=== PATIENT | male | born 1995 | race Caucasian/White ===

== ENCOUNTER 2019-06-05 23:31 | Emergency (ER) | payer SELFPAY ==
[~2019-06-05] VITALS: Ht 185.4 cm; Wt 117.9 kg
--- NOTE | 2019-06-06 00:30 | ED Integumentary General ---
General Chief Complaint: Skin/Wound Problems Stated Complaint: POSS BUG BITES ON BUTT & LEFT ARM,VOMITING,POSS HE Source: patient, family Exam Limitations: no limitations (DANYELL DURON) History of Present Illness Date Seen by Provider: Jun 06, 2019 Time Seen by Provider: 00:13 Initial Comments Pt presents with a bite on his left upper arm that is mildly itchy and a bite on his right upper gluteal region that is associated with a shooting pain down his leg to his knee and up his back a little. He states he stayed at friends house last night and slept on their couch and noticed the bites in the morning. He states that at work this afternoon he had a hot flash with shortness of breath, sweating, and dizziness that caused him to leave work, but have since subsided. Timing/Duration: this morning Severity: mild Location: torso (Right upper buttox), extremities Associated Symptoms: No fever, No nasal congestion, No numbness, No sore throat, No tingling (DANYELL DURON) Timing/Duration: this morning Associated Symptoms: change in skin texture, edema (EULOGIO BENITO MD) Allergies and Home Medications Allergies Coded Allergies: No Known Drug Allergies (Unverified , 06/06/19) Patient Home Medication List Home Medication List Reviewed: Yes (EULOGIO BENITO MD) Review of Systems Review of Systems Constitutional: no symptoms reported EENTM: no symptoms reported; No ear pain, No nose congestion, No throat pain Respiratory: No cough, No dyspnea on exertion Cardiovascular: no symptoms reported Gastrointestinal: No abdominal pain; diarrhea, nausea Genitourinary: no symptoms reported Musculoskeletal: no symptoms reported Skin: no symptoms reported Psychiatric/Neurological: No Symptoms Reported Endocrine: No Symptoms Reported Hematologic/Lymphatic: No Symptoms Reported (DANYELL DURON) Respiratory: No cough, No short of breath Skin: no symptoms reported, lesions, pruritus (EULOGIO BENITO MD) Past Ixojrfy-Evhipz-Ntprcc Hx Past Med/Social Hx: Reviewed Nursing Past Med/Soc Hx (EULOGIO BENITO MD) Patient Social History Alcohol Use: Occasionally Uses Alcohol Beverage of Choice: Beer Recreational Drug Use: Yes Drug of Choice: MARIJUANA Smoking Status: Current Everyday Smoker Type Used: Cigarettes 2nd Hand Smoke Exposure: Yes Recent Foreign Travel: No Contact w/Someone Who Travel: No Recent Hopitalizations: No (DANYELL DURON [facility]) Immunizations Up To Date Tetanus Booster (TDap): Unknown PED Vaccines UTD: Yes (DANYELL DURON) Past Medical History Surgeries: No Appendectomy Respiratory: No Cardiac: Yes Hypertension Neurological: No Genitourinary: No Gastrointestinal: No Musculoskeletal: No Endocrine: No HEENT: No Cancer: No Psychosocial: No Integumentary: No Blood Disorders: No ([facility]) Family Medical History Reviewed Nursing Family Hx (EULOGIO BENITO MD) Physical Exam Vital Signs Capillary Refill : (OLIVERIOPILYDANYELL KEVLIN CORRIGAN) General Appearance: WD/WN, no apparent distress HEENT: PERRL/EOMI, TMs normal, pharynx normal Neck: full range of motion, normal inspection Cardiovascular: regular rate, rhythm, no edema, no gallop, no JVD, no murmur Respiratory: lungs clear, normal breath sounds, no respiratory distress, no accessory muscle use Neurologic/Psychiatric: no motor/sensory deficits, alert, normal mood/affect, oriented x 3 Skin: normal color, warm/dry Skin Problem Character: erythema (Left upper arm, Right upper gluteal region), warm (Left upper arm, Right upper gluteal region) Lymphatic: no adenopathy (DANYELL DURON) General Appearance: WD/WN, no apparent distress Respiratory: lungs clear, normal breath sounds Neurologic/Psychiatric: alert, oriented x 3 Skin: warm/dry Skin Problem Character: erythema (Left upper arm, Right upper gluteal region), warm (Left upper arm, Right upper gluteal region), other (4 x 4 cm area of induration with central ulceration both on the left upper arm and the right low back. Both similar in appearance and consistent with spider bite) (EULOGIO BENITO MD) Progress/Results/Core Measures Results/Orders My Orders Orders - EULOGIO BENITO MD Toradol 60 Mg Im (06/06/19 00:45) Bactrim Ds Po (06/06/19 00:45) Diphenhydramine Tablet (Benadryl Tablet) (06/06/19 00:45) (EULOGIO BENITO MD) Progress Progress Note : Time: 00:15 Progress Note Pt seen by me. Otilio reports finding two bug bites this morning one that has started to cause a shooting pain down his leg. Spoke with Dr. Benito about the case. (DANYELL DURON) Progress Note : Progress Note I have seen and evaluated the patient and agree with above except as indicated. I have directed the plan of care. Patient is here with concerns about to wounds that he believes or bug bites. Occurred while sleeping on a friend's couch. Had similar incident a while back sleeping on the same couch. These wounds are little different. Onset yesterday morning and noted throughout the day. Denies other injury or concerns. Appears consistent with spider bite and this was discussed with the patient. Toradol 60 mg IM, Benadryl 25 mg by mouth and Bactrim DS one tab by mouth given patient's induration. Discharged home with return precautions. Patient verbalize understanding instructions and agreement with plan. (EULOGIO BENITO MD) Departure Impression Primary Impression: Spider bite wound Qualified Codes: T63.304A - Toxic effect of unspecified spider venom, undetermined, initial encounter Disposition: HOME, SELF-CARE Condition: Stable Departure-Patient Inst. Decision time for Depature: 00:53 (EULOGIO BENITO MD) Referrals: NO,LOCAL PHYSICIAN (PCP/Family) Primary Care Physician Patient Instructions: Spider Bites Add. Discharge Instructions: All discharge instructions reviewed with patient and/or family. Voiced understanding. Take medications as directed. Follow-up with her doctor in a few days for recheck as needed. Return for worse pain, swelling, fever, increasing redness, foul-smelling drainage or other concerns as needed. You may use triple antibiotic ointment plus pain relief over wound twice daily and cover with a Band-Aid for the next few days as needed. You may take ibuprofen 800 mg every 8 hours as needed for pain. You may also take Tylenol/acetaminophen 1000 mg every 8 hours as needed for pain. You may also take Benadryl/diphenhydramine 25 mg every 6 hours as needed for itching. Scripts Sulfamethoxazole/Trimethoprim (Sulfamethoxazole-Tmp Ds Tablet) 1 Each Tablet 1 EACH PO BID, #14 TAB 0 Refills Prov: EULOGIO BENITO MD 06/06/19 DANYELL DURON Jun 06, 2019 00:30 EULOGIO BENITO MD Jun 06, 2019 00:54
[2019-06-06] MEDS ORDERED: TRIM/SULFAMETH 160/800 (SEPTRA DS) TAB PO STA (00:45)
[2019-06-06] MEDS ORDERED: KETOROLAC 60 MG/2 ML VIAL IM STA (00:45)
[2019-06-06] MEDS ORDERED: diphenhydrAMINE 25 MG TAB (BENADRYL) PO ONE (00:45)
[2019-06-06] MEDS ORDERED: SULF-222 PO (00:55)
[2019-06-06 01:11] VITALS: BP 156/104
== END 2019-06-06 01:11 | disposition home or self-care (01) ==
LOC: ER 23:37
DX: T63.301A Toxic effect of unspecified spider venom, accidental (unintentional), initial encounter (principal); I10 Essential (primary) hypertension; F17.210 Nicotine dependence, cigarettes, uncomplicated; Z90.49 Acquired absence of other specified parts of digestive tract
CPT/HCPCS: 99284

== ENCOUNTER 2021-12-30 03:20 | Emergency (ER) | payer MEDICAID ==
[~2021-12-30] VITALS: Ht 185 cm; Wt 129.0 kg
[~2021-12-30 03:20] MED LIST: SULF-222 PO
[2021-12-30] MEDS ORDERED: TETANUS,DIPTH,PERTUSS P/F (BOOSTRIX) 0.5 ML VIAL IM ONE (03:30)
[2021-12-30] MEDS ORDERED: LACTATED RINGERS 1,000 ML IV ONE (03:30)
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
[2021-12-30 03:43] LABS: BASOPHILS # (AUTO) 0.1 10^3/uL (0.0-0.1); BASOPHILS % (AUTO) 1 % (0-10); EOSINOPHILS # (AUTO) 0.2 10^3/uL (0.0-0.3); EOSINOPHILS % (AUTO) 1 % (0-10); HEMATOCRIT 51 % (40-54); HEMOGLOBIN 17.8 g/dL (13.3-17.7); LYMPHOCYTES # (AUTO) 3.7 10^3/uL (1.0-4.0); LYMPHOCYTES % (AUTO) 28 % (12-44); MEAN CORPUSCULAR HEMOGLOBIN 32 pg (25-34); MEAN CORPUSCULAR HGB CONC 35 g/dL (32-36); MEAN CORPUSCULAR VOLUME 93 fL (80-99); MEAN PLATELET VOLUME 9.6 fL (9.0-12.2); MONOCYTES # (AUTO) 0.8 10^3/uL (0.0-1.0); MONOCYTES % (AUTO) 6 % (0-12); NEUTROPHILS # (AUTO) 8.4 10^3/uL (1.8-7.8); NEUTROPHILS % (AUTO) 63 % (42-75); PLATELET COUNT 361 10^3/uL (130-400); WHITE BLOOD COUNT 13.3 10^3/uL (4.3-11.0)
[2021-12-30 03:53] LABS: ALBUMIN 4.4 GM/DL (3.2-4.5)
[2021-12-30 03:54] LABS: POTASSIUM 3.6 MMOL/L (3.6-5.0)
[2021-12-30 03:55] LABS: PROTHROMBIN TIME PATIENT 13.1 SEC (12.2-14.7)
[2021-12-30 03:56] LABS: TOTAL PROTEIN 7.1 GM/DL (6.4-8.2)
[2021-12-30 03:58] LABS: BILIRUBIN,TOTAL 0.5 MG/DL (0.1-1.0)
[2021-12-30 04:00] LABS: CREATININE SERUM 0.98 MG/DL (0.60-1.30)
[2021-12-30] MEDS ORDERED: ceFAZolin INJECTION 500 MG in NS (IVPB) 50 ML IV ONE (05:30)
[2021-12-30] MEDS ORDERED: ceFAZolin INJECTION 1,000 MG ONE (05:34)
[2021-12-30] MEDS ORDERED: TRAM-42 PO ×2 (05:35→05:40)
[2021-12-30] MEDS ORDERED: CEFU500T63 PO ×2 (05:35→05:40)
[2021-12-30] MEDS ORDERED: ceFAZolin INJECTION 1,000 MG VIAL IV ONE (05:45)
[2021-12-30 05:55] VITALS: BP 140/88
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
== END 2021-12-30 05:56 | disposition home or self-care (01) ==
LOC: EDUNIT# 03:20 → ER 03:22
DX: S02.832A Fracture of medial orbital wall, left side, initial encounter for closed fracture (principal); F10.929 Alcohol use, unspecified with intoxication, unspecified; E66.9 Obesity, unspecified; F17.210 Nicotine dependence, cigarettes, uncomplicated; Z23 Encounter for immunization; Y90.6 Blood alcohol level of 120-199 mg/100 ml; V47.5XXA Car driver injured in collision with fixed or stationary object in traffic accident, initial encounter
CPT/HCPCS: 36415; 70450; 70486; 71045; 72125; 72170; 80053; 80320; 85025; 85610; 85730; 90715; 93041